=== PATIENT | female | born 1960 | race African-American/Black ===

== ENCOUNTER 2017-12-19 20:00 | Emergency (ER) | payer OTHER ==
[~2017-12-19] VITALS: Ht 152.4 cm; Wt 65.0 kg
[2017-12-19] MEDS ORDERED: HCTZ (20:07)
[2017-12-19 20:31] VITALS: BP 175/96
== END 2017-12-19 21:58 | disposition home or self-care (01) ==
LOC: ED 20:48
DX: S82.64XA Nondisplaced fracture of lateral malleolus of right fibula, initial encounter for closed fracture (principal); I10 Essential (primary) hypertension; X50.1XXA Overexertion from prolonged static or awkward postures, initial encounter; Y93.89 Activity, other specified; Y99.8 Other external cause status; Y92.89 Other specified places as the place of occurrence of the external cause
CPT/HCPCS: 29125; 99284